=== PATIENT | male | born 2000 | race Caucasian/White ===

== ENCOUNTER 2023-01-11 13:48 | Outpatient (CLI) | payer OTHER, SELFPAY ==
--- NOTE | ~2023-01-11 | MR_ITS ---
EXAMINATION: MR brain/brain stem wo/w con DATE: 01/11/2023 14:34 INDICATION: Migraine with aura TECHNIQUE: Magnetic resonance imaging (MRI) of the brain and brainstem was performed without and with 14 mL Multihance intravenous contrast. Sequences included sagittal and axial T1-weighted SE, axial d iffusion-weighted FS SE, axial T2*-weighted GRE, axial T2-weighted FLAIR, and axial T2-weighted FSE. Postcontrast axial and coronal T1-weighted SE was obtained. Apparent diffusion coefficient (ADC) maps were created. COMPARISON: None. FINDINGS: There are no areas of restricted diffusion to suggest acute infarction. Small focus of encephalomalac ia suggestive of old lacunar infarct at the right basal ganglia. No intracranial hemorrhage or abnorm al intracranial mass lesion. There are no intraparenchymal signal abnormalities seen on the other pu lse sequences. The ventricles are symmetric and normal in size. There are no abnormal extra-axial flu id collections. There is a 2.1 x 1.2 x 1.3 cm lesion with lobular margins within the left petrous ape x which is T1 and T2 hyperintense and without restricted diffusion. There appears to be thin rim of p eripheral enhancement but no definitive central enhancement above the baseline elevated T1 signal. No evident abnormal fluid in the mastoid air cells or middle ear cavities. Flow voids are seen in the c erebral arteries on the T2-weighted sequences consistent with their expected patency. Left vertebral artery is dominant. Orbits are normal. Mild mucosal thickening and large mucous retention cysts in th e bilateral maxillary sinuses. IMPRESSION: 1. Small focus of encephalomalacia within the right basal ganglia with typical appearance for old lac unar infarct although this would be atypical for age and differential would include sequela of other chronic focal insult. No acute intracranial process. 2. 2.1 x 1.2 x 1.3 cm lesion at the left petrous apex. 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 Differential would include exudative effusion, blood, cholesteatoma or hy drated mucocele. No appreciable central enhancement to suggest solid neoplasm of the assessment for e nhancement is somewhat limited by the high baseline T1 signal. Reviewed, dictated and finalized at location A. IMPRESSION: 1. Small focus of encephalomalacia within the right basal ganglia with typical appearance for old lacunar infarct although this would be atypical for age and differential would include sequela of other chronic focal insult. No acute intr acranial process. 2. 2.1 x 1.2 x 1.3 cm lesion at the left petrous apex. 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 Differential would include ex udative effusion, blood, cholesteatoma or hydrated mucocele. No appreciable heron tral enhancement to suggest solid neoplasm of the assessment for enhancement is somewhat limited by the high baseline T1 signal.
== END 2023-01-11 13:49 ==
LOC: MICIMG 13:50
PROVIDERS: PCP Physician Assistant; Visit Provider Physician Assistant
DX: G43.109 Migraine with aura, not intractable, without status migrainosus (principal)
CPT/HCPCS: 70553; A9577